=== PATIENT | male | born 1955 | race African-American/Black ===

== ENCOUNTER 2019-12-13 20:43 | Emergency (ER) | payer OTHER ==
[~2019-12-13] VITALS: Ht 185.4 cm; Wt 96.6 kg
--- NOTE | 2019-12-13 21:11 | NUR ---
PATIENT CAME TO ER BED 9 C/O PRODUCTIVE COUGH AND FEVER FOR 2x DAYS. PT STATES THAT HE HAS BEEN FEELING SICK SINCE 2 DAYS AGO. STATES HE HAS A CHEST X RAY RECENTLY AND HAS WAS DIAGNOSED WITH LITTLE NODES ON THE RIGHT UPPER LUNGS. HX OF COPD. AAOX4. NO SOB. BREATHING EVENLY AND UNLABORED ON ROOM AIR. CONNECTED TO MONITOR.
[2019-12-13] MEDS ORDERED: ALBUTEROL FS 2.5 MG/3 ML VIAL.NEB ONE (21:27)
[2019-12-13] MEDS ORDERED: IPRATROPIUM NEB FS 0.5 MG/2.5 ML AMPUL.NEB ONE (21:27)
[2019-12-13] MEDS ORDERED: predniSONE 20 MG TABLET ONE (21:28)
[2019-12-13] MEDS ORDERED: predniSONE 20 MG TABLET PO ONE (21:30)
[2019-12-13] MEDS ORDERED: IPRATROPIUM NEB FS 0.5 MG/2.5 ML AMPUL.NEB NEB ONE (21:30)
[2019-12-13] MEDS ORDERED: ALBUTEROL FS 2.5 MG/3 ML VIAL.NEB CONTNEB ONE (21:30)
[2019-12-13] MEDS ORDERED: ACETAMINOPHEN ES 500 MG TABLET ONE (22:18)
[2019-12-13] MEDS ORDERED: ACETAMINOPHEN ES 500 MG TABLET PO ONE (22:30)
[2019-12-13] MEDS ORDERED: IBUPROFEN 400 MG TABLET ONE (22:34)
[2019-12-13 22:45] VITALS: BP 112/74
[2019-12-13] MEDS ORDERED: IBUPROFEN 400 MG TABLET PO ONE (23:00)
== END 2019-12-13 22:47 | disposition home or self-care (01) ==
LOC: ER 20:46
DX: J44.1 Chronic obstructive pulmonary disease with (acute) exacerbation (principal); J06.9 Acute upper respiratory infection, unspecified; Z85.46 Personal history of malignant neoplasm of prostate
CPT/HCPCS: 71045; 87804 ×2; 94644; 99285; J7512

== ENCOUNTER 2023-12-13 11:33 | Emergency (ER) | payer OTHER ==
[~2023-12-13] VITALS: Ht 185.4 cm; Wt 98.4 kg
[2023-12-13 11:39] VITALS: BP 120/62; TEMP 98
[2023-12-13 11:59] VITALS: O2SAT 98
== END 2023-12-13 11:59 | disposition home or self-care (01) ==
LOC: ER 11:40
DX: S60.457A Superficial foreign body of left little finger, initial encounter (principal); J44.9 Chronic obstructive pulmonary disease, unspecified; Z85.46 Personal history of malignant neoplasm of prostate; Z85.528 Personal history of other malignant neoplasm of kidney; X58.XXXA Exposure to other specified factors, initial encounter; Y93.89 Activity, other specified; Y92.89 Other specified places as the place of occurrence of the external cause; Y99.8 Other external cause status

== ENCOUNTER 2023-12-17 19:23 | Emergency (ER) | payer OTHER ==
[~2023-12-17] VITALS: Ht 182.9 cm; Wt 99.8 kg
[2023-12-17 19:52] VITALS: BP 138/74; TEMP 98.8; O2SAT 97
[2023-12-17] MEDS ORDERED: HYDROCODONE/APAP 5/325MG TABLET ONE (20:07)
[2023-12-17] MEDS: HYDROCODONE/APAP 5/325MG TABLET PO ONE (20:12)
[2023-12-17] MEDS ORDERED: HYDR-4209 PO (21:01)
== END 2023-12-17 21:11 | disposition home or self-care (01) ==
LOC: ER 19:25
DX: M72.2 Plantar fascial fibromatosis (principal); J44.9 Chronic obstructive pulmonary disease, unspecified; Z85.46 Personal history of malignant neoplasm of prostate; Z85.528 Personal history of other malignant neoplasm of kidney; Z60.2 Problems related to living alone

== ENCOUNTER 2024-08-31 00:53 | Emergency (ER) | payer OTHER ==
[~2024-08-31] VITALS: Ht 180.3 cm; Wt 77.1 kg
[~2024-08-31 00:53] MED LIST: HYDR-4209 PO
[2024-08-31 01:07] VITALS: BP 134/88; TEMP 98.4; O2SAT 97
[2024-08-31] MEDS ORDERED: dexaMETHasone SOD PHOSPHATE 1 ML ONE (02:43)
[2024-08-31] MEDS ORDERED: MAG HYDROX/AL HYDROX/SIMETH 30 ML UDC ONE (02:43)
[2024-08-31] MEDS: MAG HYDROX/AL HYDROX/SIMETH 30 ML UDC PO ONE (02:45)
[2024-08-31] MEDS: dexaMETHasone SOD PHOSPHATE 10 MG/ML VIAL MC ONE (02:45)
[2024-08-31] MEDS ORDERED: AZIT500T4 PO (03:38)
[2024-08-31] MEDS ORDERED: PRED20TA PO (03:38)
[2024-08-31] MEDS ORDERED: PHEN177S31 PO (03:38)
== END 2024-08-31 03:44 | disposition home or self-care (01) ==
LOC: ER 01:10
DX: K12.2 Cellulitis and abscess of mouth (principal); J44.9 Chronic obstructive pulmonary disease, unspecified; Z79.52 Long term (current) use of systemic steroids; Z85.46 Personal history of malignant neoplasm of prostate; Z85.528 Personal history of other malignant neoplasm of kidney; Z60.2 Problems related to living alone
CPT/HCPCS: 99283; J1100